=== PATIENT | female | born 1955 | race Caucasian/White ===

== ENCOUNTER → 2025-02-17 | Outpatient (CLI) | payer MEDICARE ==
--- NOTE | 2025-02-17 15:37 | HMCIMG ---
Exam Type: CHEST 2VWS Clinical Information: ACUTE BRONCHITIS Comparison: None Findings: The lungs are clear of infiltrates. The heart is enlarged. Bony and soft tissue structures of the chest wall are unremarkable. IMPRESSION: Cardiomegaly. Clear lungs.
== END | disposition home or self-care (01) ==
LOC: RAH 14:52
PROVIDERS: ATTEND Internal Medicine
DX: I51.7 Cardiomegaly (principal); J20.9 Acute bronchitis, unspecified
CPT/HCPCS: 71046